=== PATIENT | male | born 1950 | race African-American/Black ===

== ENCOUNTER 2017-08-31 21:56 | Emergency (ER) | payer MEDICARE ==
[2017-08-31] MEDS ORDERED: methylPREDNISolone Sod Succ/PF 125 MG/2 ML VIAL ONE (22:16)
[2017-08-31] MEDS ORDERED: Sodium Chloride For Inhalation 0.9% 3 ML NEB ONE ×2 (22:16→22:42)
[2017-08-31] MEDS ORDERED: Albuterol Sulfate 2.5 mg/0.5 ml Neb ONE ×2 (22:16→22:42)
--- NOTE | 2017-08-31 22:28 | RAD ---
EXAM: ONE VIEW CHEST 08/31/17 COMPARISON: 01/31/2014 HISTORY: Dyspnea. FINDINGS: Portable semiupright chest demonstrates a normal cardiac silhouette. Pulmonary vessels and hilum are normal. Costophrenic angles are clear. No mass. No consolidation. No osseous abnormalities or pneum othorax. IMPRESSION: No acute cardiopulmonary process. POS: [facility]
== END 2017-08-31 23:25 | disposition home or self-care (01) ==
LOC: NAV ERS 21:56
DX: J45.909 Unspecified asthma, uncomplicated (principal); K21.9 Gastro-esophageal reflux disease without esophagitis; E78.5 Hyperlipidemia, unspecified; I10 Essential (primary) hypertension
CPT/HCPCS: 71010; 94640; 94760; 96372; J2930; J7611; J7620

== ENCOUNTER 2017-09-28 21:10 | Emergency (ER) | payer MEDICARE ==
[~2017-09-28 21:10] MED LIST: Iopamidol 370 76% 100 ML VIAL ONE
[2017-09-28] MEDS ORDERED: methylPREDNISolone Sod Succ/PF 125 MG/2 ML VIAL ONE (21:37)
--- NOTE | 2017-09-28 21:43 | RAD ---
PORTABLE SEMIUPRIGHT FRONTAL CHEST RADIOGRAPH 09/28/17 COMPARISON: 08/31/17 HISTORY: Wheezing. FINDINGS: Mild pulmonary vascular prominence. No pneumothorax, pleural fluid, focal consolidation, or alveolar edema. IMPRESSION: Pulmonary vascular congestion without focal consolidation or alveolar edema. POS: [facility]
[2017-09-28 22:05] LABS: #Basophils 0.1 thou/uL (0.0-0.2); #Eosinphils 0.2 thou/uL (0.0-0.7); #Lymphocytes 1.6 thou/uL (1.20-3.40); #Monocytes 0.8 thou/uL (0.11-0.59); #Neutrophils 6.2 thou/uL (1.40-6.50); %Basophils 0.9 % (0.0-1.0); %Eosinophils 2.4 % (0.0-10.0); %Lymphocytes 18.5 % (21.0-51.0); %Monocytes 8.8 % (0.0-10.0); %Neutrophils 69.4 % (42.0-75.0); Hemoglobin 12.4 g/dL (14.0-18.0); Mean Corpuscular HGB CONC 31.7 g/dL (32.0-36.0); Mean Corpuscular Hemoglobin 29.8 pg (27.0-31.0); Mean Platelet Volume 7.5 fL (7.4-10.4); Platelet Count 315 thou/uL (130-400); RBC Distribution Width 12.6 % (11.5-14.5); Red Blood Cell (RBC) Count 4.16 mill/uL (4.70-6.10); White Blood Cell (WBC) Count 8.9 thou/uL (4.8-10.8)
[2017-09-28 22:16] LABS: PTT 32.3 SEC (22.9-36.1); Prothrombin Time 13.5 SEC (12.0-14.7)
[2017-09-28 22:17] LABS: D-Dimer Test 1.11 *mcg/mL (0.27-0.43)
[2017-09-28 22:26] LABS: ALT (SGPT) 20 U/L (8-55); AST (SGOT) 19 U/L (5-34); Albumin 3.9 g/dL (3.4-4.8); Alkaline Phosphatase 119 U/L (40-150); Anion Gap 17 mmol/L (10-20); BUN (Urea Nitrogen) 15 mg/dL (8.4-25.7); Bilirubin, Total 0.2 mg/dL (0.2-1.2); CKMB 3.3 ng/mL (0-6.6); Calc. Creatinine Clearance 0 mL/min (70-130); Calcium 10.8 mg/dL (7.8-10.44); Carbon Dioxide 24 mmol/L (23-31); Chloride 102 mmol/L (98-107); Estimated GFR-MDRD Greater than 90; Globulin 4.9 g/dL (2.4-3.5); Glucose 93 mg/dL (80-115); Protein, Total 8.8 g/dL (5.8-8.1); Sodium 139 mmol/L (136-145); Troponin I Less than 0.010 ng/mL (< 0.028)
--- NOTE | 2017-09-28 23:40 | CT ---
CT ANGIOGRAM OF THE CHEST 09/28/17 COMPARISON: 09/12/17 HISTORY: Wheezing and shortness of breath. TECHNIQUE: Serial axial CT imaging at 2.5 mm intervals from thoracic inlet through upper abdomen with IV contras t using a CT angiogram protocol. Coronal and oblique sagittal 3D reformatted imaging obtained. FINDINGS: There is suboptimal opacification of the pulmonary arterial vasculature secondary to motion and subop timal timing of the contrast bolus. No discrete filling defect is seen within the pulmonary arterial trunk or either main pulmonary arter y. The segmental and subsegmental pulmonary arterial structures are limited in assessment. There is a n area concerning for pulmonary embolism involving distal segmental and subsegmental right lower lobe pulmonary arteries, as seen on the 09/12/17 examination. No obvious central pulmonary embolism is se en. Partial visualization of upper abdomen is grossly unremarkable. Moderate sized hiatal hernia again noted. There is coronary arterial calcification noted, stable. No significant pleural, pericardial or mediastinal fluid. No pneumothorax is evident on either side. There are peripheral areas of focal pulmonary parenchymal opacity within the inferior aspect of the r ight lower lobe laterally and posteriorly. The posterior component is stable while the lateral right lower lobe component, best seen on axial image 79 is more conspicuous. The findings may represent inf ectious pneumonitis/aspiration, volume loss, or pulmonary infarction. There is subpleural emphysemato us changes noted. No discrete endobronchial lesion noted. No acute osseous abnormality seen. IMPRESSION: Suboptimal timing of the contrast bolus and motion artifact limits detailed assessment of the pulmona ry arterial vasculature. As seen on the 09/12/17 CT angiogram of the chest, there are findings concer leah for segmental and subsegmental right lower lobe pulmonary embolism. Patchy areas of peripheral f ocal opacity are noted within the right lower lobe, slightly worsened since the prior exam, different ial diagnosis as detailed above. Recommend followup CT of the chest within three months to document r esolution. Code T POS: [id number]
== END 2017-09-29 00:32 | disposition home or self-care (01) ==
LOC: NAV ERS 21:10
DX: J45.901 Unspecified asthma with (acute) exacerbation (principal); K21.9 Gastro-esophageal reflux disease without esophagitis; E78.5 Hyperlipidemia, unspecified; I10 Essential (primary) hypertension; Z79.899 Other long term (current) drug therapy
CPT/HCPCS: 36415; 71010; 71275; 80053; 82553; 83605; 83880; 84484; 85025; 85379; 85610; 85730; 93005; 94640; 94760; 96361; 96374; J2930; J7620